=== PATIENT | male | born 1980 | race Hispanic/Latino ===

== ENCOUNTER → 2017-08-27 | Day surgery (SDC) | payer OTHER ==
[~2017-08-27] MED LIST: ACETAMINOPHEN 1000 MG/100 ML 100 ML IV ONE; BACITRACIN 50,000 UNIT VIAL ONE; BUPIVACAINE HCL 0.5% INJ 30 ML VIAL INJ ONE; CEFAZOLIN SOD 1 GM VIAL ONE; DEXAMETHASONE SOD PHOS INJ 4 MG/ML VIAL ONE; FENTANYL CITRATE/PF 100MCG/2 ML INJ ONE; KETOROLAC TROMETHAMINE 30 MG/ML VIAL ONE; LIDOCAINE HCL 2% LOCAL INJ 5 ML SDV VIAL INJ ONE; MIDAZOLAM HCL 2 MG/2 ML VIAL ONE; ONDANSETRON HCL INJ 2 MG/ML VIAL ONE; PROPOFOL IV EMULSION 10 MG/ML 20 ML VIAL ONE; SEVOFLURANE INHAL SOLN 250 ML PEN BTL ONE
--- NOTE | 2017-08-27 14:10 | Operative Report ---
DATE OF PROCEDURE: August 27, 2017 ETHICAL HACKER: Silvano Hanson PA-C The patient was brought to the operating room for induction of anesthesia. Throughout this case, my PA's assistance was necessary for retraction of soft tissue and positioning of the extremity. This allows for efficient and technically successful execution of the operation and is considered medically necessary. PREOPERATIVE DIAGNOSIS: Foreign body, right leg. POSTOPERATIVE DIAGNOSIS: Foreign body times 2, right leg. OPERATION: Foreign body removal, right leg. INDICATIONS: The patient is a 37-year-old gentleman who was injured at work yesterday. The tool that is used to insert tire plugs penetrated his leg. The tip broke off. He was referred to the clinic, and surgical debridement and removal were scheduled. The risks and benefits were explained. He stated he understood and wished to proceed. PROCEDURE: The patient was brought to the operating room and placed under general anesthetic. His right lower extremity was prepped and draped in a sterile manner. A preoperative time out was performed. The previous puncture wound was opened with a pair of blunt hemostats. A C-arm image intensifier was used to assist in locating the metal fragments. These were eventually both removed using a single hemostat. The wound was thoroughly irrigated. The wound was packed with iodoform gauze. A sterile bandage was applied. He was extubated and transported to the recovery room in stable condition. There was no blood loss, and all needle and sponge counts were correct. Job#: [id number]
== END | disposition home or self-care (01) ==
LOC: OR 07:41
PROVIDERS: ATTEND Specialist
DX: S81.841A Puncture wound with foreign body, right lower leg, initial encounter (principal); F17.210 Nicotine dependence, cigarettes, uncomplicated; W29.8XXA Contact with other powered hand tools and household machinery, initial encounter; Y93.89 Activity, other specified; Y92.89 Other specified places as the place of occurrence of the external cause; Y99.0 Civilian activity done for income or pay
CPT/HCPCS: 20103; 76000; J0690; J1100; J1885; J2001; J2250; J2405